=== PATIENT | female | born 1975 | race African-American/Black ===

== ENCOUNTER 2018-10-13 07:54 | Emergency (ER) | payer SELFPAY | END 2018-10-13 09:55 | disposition home or self-care (01) | LOC: ERS 07:54 | DX: J32.9 Chronic sinusitis, unspecified (principal); J02.9 Acute pharyngitis, unspecified; F17.210 Nicotine dependence, cigarettes, uncomplicated; F32.9 Major depressive disorder, single episode, unspecified; Z79.899 Other long term (current) drug therapy | CPT/HCPCS: 87081; 87430; 99283 ==

== ENCOUNTER 2022-05-11 11:20 | Outpatient (CLI) | payer OTHER | END 2022-05-11 11:21 | disposition home or self-care (01) | LOC: BICMAMMO 11:20 | PROVIDERS: ATTEND Physician Assistant | DX: Z12.31 Encounter for screening mammogram for malignant neoplasm of breast (principal) | CPT/HCPCS: 77063; 77067 ==

== ENCOUNTER 2024-05-07 11:00 | Outpatient (CLI) | payer OTHER | END 2024-05-07 11:01 | disposition home or self-care (01) | LOC: PET 11:00 | PROVIDERS: ATTEND Internal Medicine Hematology & Oncology | DX: R59.0 Localized enlarged lymph nodes (principal); R91.8 Other nonspecific abnormal finding of lung field | CPT/HCPCS: 78815; A9552 ==

== ENCOUNTER 2024-05-26 09:10 | Day surgery (SDC) | payer OTHER ==
[2024-05-22 14:19] VITALS: BMI 50.3
[2024-05-26] MEDS ORDERED: Lidocaine 4% PF 5 ML AMP ONE (10:19)
[2024-05-26] MEDS ORDERED: Ipratropium/Albuterol 3 ML NEB ONE (10:19)
[2024-05-26] MEDS ORDERED: Lidocaine 1% PF 5 ML VIAL ONE ×2 (10:20→11:40)
[2024-05-26] MEDS ORDERED: PROPOFOL 20 ML ONE ×4 (10:20→11:40)
[2024-05-26] MEDS ORDERED: SUGAMMADEX SODIUM 200 MG/2 ML VIAL ONE (11:40)
[2024-05-26] MEDS ORDERED: Dexamethasone 20 MG/5 ML VIAL ONE (11:40)
[2024-05-26] MEDS ORDERED: Rocuronium Bromide 10 MG/ML (10ML VIAL) ONE (11:40)
[2024-05-26] MEDS ORDERED: Ondansetron PF 4 MG/2 ML Vial ONE (11:40)
[2024-05-26] MEDS ORDERED: fentaNYL PF 100 MCG/2 ML SYRINGE ONE (11:40)
[2024-05-26] MEDS ORDERED: Midazolam HCl 2 mg/2 ml Vial ONE (12:05)
[2024-05-26] MEDS ORDERED: SUCCINYLCHOLINE/SOD CL,ISO/PF 200 MG/10 ML SYRINGE FS ONE (12:09)
[2024-05-30 13:41] LABS: Fungus Stain Final report (.)
[2024-05-30 13:41] LABS: Fungus Stain Final report (.)
== END 2024-05-26 15:25 | disposition home or self-care (01) ==
LOC: SDC 09:10
PROVIDERS: ATTEND Internal Medicine
PROC: 0BJ08ZZ Inspection of Tracheobronchial Tree, Via Natural or Artificial Opening Endoscopic (ICD-10-PCS; principal; 2024-05-26)
PROC: 0BC68ZZ Extirpation of Matter from Right Lower Lobe Bronchus, Via Natural or Artificial Opening Endoscopic (ICD-10-PCS; principal; 2024-05-26)
PROC: 0B9F8ZX Drainage of Right Lower Lung Lobe, Via Natural or Artificial Opening Endoscopic, Diagnostic (ICD-10-PCS; principal; 2024-05-26)
DX: I88.9 Nonspecific lymphadenitis, unspecified (principal); R59.0 Localized enlarged lymph nodes; I10 Essential (primary) hypertension; F17.210 Nicotine dependence, cigarettes, uncomplicated; Z79.899 Other long term (current) drug therapy
CPT/HCPCS: 87070; 87077; 87102; 87116; 87186; 87205; 87206; 88172; 88173; 88177; 88184; 88305; J1100; J2250; J2405; J2704; J7620